=== PATIENT | male | born 1980 | race Caucasian/White ===

== ENCOUNTER 2019-04-18 19:34 | Emergency (ER) | payer OTHER ==
--- NOTE | 2019-04-18 20:29 | ED Physician Documentation ---
PD HPI OPHTHO - Stated complaint Stated Complaint: METAL IN LEFT EYE - Chief complaint Chief Complaint: Heent - History obtained from History obtained from: Patient - History of Present Illness Timing - onset: How many hours ago (10) Timing - duration: Hours Timing - details: Abrupt onset Location: Left Quality / character: Itching, Burning Associated symptoms: Redness. No: Discharge, Matting, FB sensation Contributing factors: Work related. 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 He was wearing safety glasses. He did not know that anything it got in his eye but when he got home tonight it was irritated and he looked in the mirror and can see something in the left eye. He has not noted any visual changes. He is uncertain his last tetanus vaccine was. Review of Systems Eyes: reports: Irritation. denies: Loss of vision, Decreased vision PD PAST MEDICAL HISTORY - Past Medical History Past Medical History: No Cardiovascular: None Respiratory: None Neuro: None Endocrine/Autoimmune: None GI: None : None HEENT: None Psych: None Musculoskeletal: None Derm: None - Past Surgical History Past Surgical History: No - Present Medications Home Medications: Ambulatory Orders Medication Instructions Recorded Confirmed Erythromycin Base [Erythromycin 1 gm OP Q3HR #1 oint...g. 04/18/19 Ophthalmic Ointment] - Allergies Allergies/Adverse Reactions: Allergies Allergy/AdvReac Type Severity Reaction Status Date / Time No Known Drug Allergies Allergy Verified 04/18/19 20:38 - Social History Does the pt smoke?: No Smoking Status: Never smoker Does the pt drink ETOH?: Yes Does the pt have substance abuse?: No - Immunizations Immunizations are current?: Yes - POLST Patient has POLST: No PD ED PE NORMAL - Vitals Vital signs reviewed: Yes (Well-developed well-nourished 38-year-old speaking man who is not ) - General General: Alert and oriented X 3, No acute distress, Well developed/nourished - HEENT HEENT: Atraumatic PD ED PE EXPANDED - Eyes Eyes: PERRL Results - Vitals Vitals: Vital Signs - 24 hr 04/18/19 04/18/19 04/18/19 19:45 21:17 21:58 Temperature 36.3 C L Heart Rate 74 91 64 Respiratory 16 19 16 Rate Blood Pressure 155/78 H 127/84 H O2 Saturation 98 98 99 Oxygen O2 Source Room air Procedures - FB removal FB location: Other (Left cornea) FB removal preparation: Local anesthesia-specify (Tetracaine ophthalmic) Removal method: Other (Ophthalmic bur followed by saline irrigation.) FB removal aftercare: No complications, Patient tolerated well, Removed successfully PD MEDICAL DECISION MAKING - ED course Complexity details: d/w patient ED course: Visual acuity was 20/40 in the left eye, 20/40 in the right eye 20/25 bilaterally. Patient tolerated the procedure well and there was complete removal of the metallic foreign body. No residual rust ring was evident at this time. He was given ophthalmic ointment and prepack of hydrocodone for pain tonight. Follow-up in 24 to 36 hours if not 100% improved. He did not feel that he needed a note for work tomorrow. Departure - Departure Disposition: 01 Home, Self Care Clinical Impression: Corneal FB (foreign body) Qualifiers: Encounter type: initial encounter Laterality: left Qualified Code(s): T15.02XA - Foreign body in cornea, left eye, initial encounter Condition: Good Instructions: ED Foreign Body Cornea Follow-Up: [facility] [Provider Group] Prescriptions: Erythromycin Base [Erythromycin Ophthalmic Ointment] 1 gm OP Q3HR #1 oint...g. Comments: Avoid bright lights and flashing lights on a TV screen or cell phone. Take ibuprofen if needed for pain. You have for hydrocodone that can you can use if needed for pain but do not drive or operate machinery if you take those. Apply the ointment about 1/2 inch ribbon into the left eye every 3 hours. Recheck with your primary care provider or here in the emergency department on if not 100% better.
[2019-04-18] MEDS ORDERED: TETRACAINE 0.5% OPHTH DROPS 15 ML LEFTEYE STA (20:33)
[2019-04-18] MEDS ORDERED: TETANUS/DIPHTHERIA/PERTUSSIS 0.5 ML SYRINGE IM ONE (20:33)
[2019-04-18] MEDS ORDERED: TETRACAINE 0.5% OPHTH DROPS 4 ML ONE (21:05)
[2019-04-18] MEDS ORDERED: ERYTHROMYCIN OPHTH OINT 1 GM TUBE LEFTEYE STA (21:48)
[2019-04-18] MEDS ORDERED: HYDROcod/ACET 5/325 Prepack 4 PO STA (21:49)
[2019-04-18 22:01] VITALS: BP 127/84
== END 2019-04-18 22:14 | disposition home or self-care (01) ==
LOC: ED 19:34
DX: T15.02XA Foreign body in cornea, left eye, initial encounter (principal); X58.XXXA Exposure to other specified factors, initial encounter; Y93.89 Activity, other specified; Y99.0 Civilian activity done for income or pay; Z23 Encounter for immunization
CPT/HCPCS: 65220; 90471; 90715; 99283; J3490